=== PATIENT | female | born 1960 | race Hispanic/Latino ===

== ENCOUNTER → 2025-01-06 | Outpatient (CLI) | payer OTHER ==
--- NOTE | 2025-01-07 08:34 | HMCIMG ---
EXAM: CT Cardiac calcium scoring. CLINICAL HISTORY: Screening. TECHNIQUE: Thin collimated axial CT cardiac images were obtained. A CT scan is done according to ALARA (As Low As Reasonably Achievable). CONTRAST: None. COMPARISON: None provided. FINDINGS: Calcium Score: VESSEL Number of lesions Volume mm3 Equi. Mass/mg Calcium score LM 2 82.6 - 111.3 LAD 2 6.3 - 12.5 LCX 2 14.9 - 16.9 RCA 2 41.8 - 47.1 Total 8 145.6 - 187.9 IMPRESSION: The total calcium score is 187.9. This corresponds to the 94th percentile. /[place]
== END | disposition home or self-care (01) ==
LOC: RAH 08:23 → EDBD 03-12 14:30
PROVIDERS: ATTEND Internal Medicine Cardiovascular Disease
DX: Z13.6 Encounter for screening for cardiovascular disorders (principal)
CPT/HCPCS: 75571

== ENCOUNTER 2025-04-14 15:53 | Emergency (ER) | payer OTHER, MEDICARE ==
[~2025-04-14] VITALS: Ht 157.5 cm; Wt 72.2 kg
[2025-04-14 15:56] VITALS: TEMP 98.1
[2025-04-14 17:14] LABS: IMMATURE GRANULOCYTE ABSOLUTE 0.04 K/uL (0-1); NUCLEATED RED BLOOD CELLS 0.0 % (0.0-0.19); PLATELET COUNT (AUTO) 245 K/uL (130-400); RED BLOOD CELL COUNT(AUTO) 4.14 MIL/uL (4.00-5.50); RED CELL DISTRIBUTION WIDTH 13.0 % (11.0-15.5); WHITE BLOOD COUNT (AUTO) 9.1 K/uL (4.8-10.8)
--- NOTE | 2025-04-14 17:17 | EKG ---
[facility] Test Date: 2025-04-14 Test Time: 15:06:42 Pat Name: MELA MERCADO Department: ED Room: Gender: F Commercial Fisher: [id number] : 1960 Requested By: RAFAEL DELAROSA Order Number: [id number] Reading MD: Eric Wade Measurements Intervals [place] Rate: 63 P: 65 LA: 137 QRS: 63 QRSD: 91 T: 62 QT: 433 QTc: 440 Interpretive Statements Sinus rhythm Ventricular premature complex No previous ECG available for comparison Electronically Signed On 04-15-2025 16:10:30 CDT by Eric Wade Please click the below link to view image of tracing.
[2025-04-14 17:25] LABS: CREATININE 0.7 mg/dL (0.5-1.0); GLOMERULAR FILTR. RATE CALC 95.0 mL/min (>90); GLUCOSE,RANDOM 160.0 mg/dL (70-105); SODIUM SERUM 136.0 mmol/L (136-145); UREA NITROGEN, BLOOD 14.0 mg/dL (7-18)
--- NOTE | 2025-04-14 17:45 | HMCIMG ---
EXAM: CR Chest, 1 View. CLINICAL HISTORY: cp COMPARISON: None provided. FINDINGS: LUNGS: The lungs show no infiltrate or other acute finding. PLEURAL SPACES: No evidence of pleural effusion or pneumothorax. MEDIASTINUM: Cardiac size and mediastinal contours within normal limits. BONES: No acute osseous abnormality. IMPRESSION: No acute cardiopulmonary pathology is evident. /[place]
[2025-04-14] MEDS: DICYCLOMINE HCL 10 MG/5 ML ML PO ONE (18:19)
[2025-04-14] MEDS: LIDOCAINE HCL 2% VISCOUS 15 ML UDCUP PO ONE (18:19)
[2025-04-14] MEDS: MAG/ALUM/SIMETH 30 ML UDCUP PO ONE (18:19)
[2025-04-14 18:23] LABS: ASPARTATE AMINOTRANSFERASE 25.0 U/L (10-37); TOTAL PROTEIN, SERUM 8.6 g/dL (6.0-8.3)
--- NOTE | 2025-04-14 19:09 | ERN ---
ED Note History of Present Illness Stated Complaint: CHEST PAIN Chief Complaint: Chest Pain Time Seen by MD: 16:43 Time Seen by Midlevel: 16:48 Dictation: 65-year-old female coming in with complaints of an episode of chest pain about 13 30. Patient states she has a history of hypertension and cholesterol, patient was seen by PCP on Saturday and PCP added amlodipine to her hypertension regimen. Currently at this time patient is denying any chest pain, chest discomfort, shortness a breath, nausea and vomiting. Patient states she wanted to be evaluated because she is scared it was a heart attack. Allergies: Coded Allergies: No Known Drug Allergies (Unverified Allergy, Unknown, 04/14/25) Past Medical History Past Medical History: High Cholesterol, Hypertension Surgical History: Hysterectomy Surgical History Other: BREAST IMPLANT REMOVAL, PELVIC SX Review of System Dictation Constitutional: Negative for fever,chills, and weight loss Eyes: Negative for injury, pain,redness, and discharge ENT: Negative for injury,pain or swelling Cardiovascular: Positive for chest pain Respiratory: Negative for shortness of breath, cough, and wheezing, Abdomen/GI: Negative for abdominal pain, nausea, vomiting, diarrhea, and constipation Back: Negative for injury and pain : Negative for injury, bleeding and discharge MS/Extremity: Negative for injury and deformity Skin: Negative for rash, and discoloration Neuro: Negative for headache, weakness, numbness, tingling, and seizure Psych: Negative for suicide ideation, homicidal ideation, and hallucinations Review of Systems: was completed Initial Vital Sign VS Vital Signs Date Time Temp Pulse Resp B/P (MAP) Pulse Ox O2 Delivery O2 Flow Rate FiO2 04/14/25 15:56 98.1 62 15 180/73 100 Room Air 0 04/14/25 18:23 21 Physical Exam Dictation General: awake, alert, NAD Head/Face: Normocephalic, atraumatic Eyes: PERRL, EOMI, vision at baseline ENT: oral cavity clear, TMs clear, no signs of infection Neck: Trachea midline, supple, no nuchal rigidity Cardiovascular: RRR, normal S1/S2, No MRGs, no JVD Respiratory: CTAB, no respiratory distress, No rales or wheezes Abdomen: Soft, mild tenderness on palpation to the epigastric region, non- distended, normal bowel sounds, no guarding or rebound. Skin: Warm, dry, normal turgor, no rash MS/Extremity: Pulses equal, no cyanosis, neurovascular intact, FROM Neuro: COAx4, GCS 15, strength 5/5, CN 2-12 intact, normal cerebellar exam, normal gait, Psych: Normal behavior, mood, and affect normal Results (Laboratory/Radiology) Laboratory/Radiology Laboratory Tests Test 04/14/25 17:05 White Blood Count 9.1 K/uL (4.8-10.8) Red Blood Count 4.14 MIL/uL (4.00-5.50) Hemoglobin 13.2 g/dL (12.0-16.0) Hematocrit 39.9 % (36-48) Mean Corpuscular Volume 96.4 fL (79-99) Mean Corpuscular Hemoglobin 31.9 pg (27.0-33.0) Mean Corpuscular Hemoglobin Concent 33.1 g/dL (32.0-36.0) Red Cell Distribution Width 13.0 % (11.0-15.5) Platelet Count 245 K/uL (130-400) Mean Platelet Volume 10.8 fL (7.5-10.5) H Immature Granulocyte % (Auto) 0.4 % (0-1) Neutrophils (%) (Auto) 62.3 % (40.0-77.0) Lymphocytes (%) (Auto) 27.1 % (21.0-51.0) Monocytes (%) (Auto) 8.8 % (3.0-13.0) Eosinophils (%) (Auto) 0.8 % (0.0-8.0) Basophils (%) (Auto) 0.6 % (0.0-5.0) Neutrophils # (Auto) 5.7 K/uL (1.8-7.7) Lymphocytes # (Auto) 2.5 K/uL (1.0-4.8) Monocytes # (Auto) 0.8 K/uL (0.1-1.0) Eosinophils # (Auto) 0.07 K/uL (0.00-0.70) Basophils # (Auto) 0.05 K/uL (0.00-0.20) Absolute Immature Granulocyte (auto 0.04 K/uL (0-1) Nucleated Red Blood Cells 0.0 % (0.0-0.19) Sodium Level 136 mmol/L (136-145) Potassium Level 4.3 mmol/L (3.5-5.1) Chloride Level 99 mmol/L (101-111) L Carbon Dioxide Level 31 mmol/L (21-32) Blood Urea Nitrogen 14 mg/dL (7-18) Creatinine 0.7 mg/dL (0.5-1.0) Glomerular Filtration Rate Calc 95 mL/min (>90) Random Glucose 160 mg/dL (70-105) H Total Calcium 9.2 mg/dL (8.5-10.1) Total Bilirubin 0.6 mg/dL (0.2-1.0) Direct Bilirubin 0.2 mg/dL (0.0-0.3) Aspartate Amino Transf (AST/SGOT) 25 U/L (10-37) Alanine Aminotransferase (ALT/SGPT) 25 U/L (12-78) Alkaline Phosphatase 89 U/L (50-136) Troponin I High Sensitivity 5 ng/L (4-50) B-Type Natriuretic Peptide 49 pg/mL (0-100) Total Protein 8.6 g/dL (6.0-8.3) H Albumin 4.5 g/dL (3.5-5.0) Lipase 32 U/L (16-77) Labs Reviewed?: Yes EKG Comment: EKGs done at 3:06 p.m. sinus rhythm rate 63. Ventricular premature complex. No STEMI interpreted by ER MD ED Course ED Course Orders Procedure Category Date Status Time 12 Lead Ekg Tracing- EKG 04/14/25 Complete Technical 16:06 Cbc With Differential LAB 04/14/25 Complete 16:38 Basic Metabolic Panel LAB 04/14/25 Complete 16:38 Troponin I High LAB 04/14/25 Complete Sensitivity 16:38 Chest 1vw RAD 04/14/25 Resulted 16:38 B-Type Natriuretic LAB 04/14/25 Complete Peptide 16:38 Lipase LAB 04/14/25 Complete 18:00 Hepatic Function Panel LAB 04/14/25 Complete 18:00 Lidocaine Hcl 2% PHA 04/14/25 Complete Viscous (Lidocaine Hcl 18:00 Mag/Alum/Simeth 30ml PHA 04/14/25 Complete (Maalox Plus 30ml) 18:00 Dicyclomine Hcl PHA 04/14/25 Complete (Bentyl 10mg/5ml 18:00 Current Medications Medications (Trade) Dose Ordered Sig/Cecile Route PRN Reason Start Time Stop Time Status Last Admin Dose Admin Al Hydroxide/Mg Hydroxide (MAALox PLUS 30ML) 30 ml ONCE ONCE PO 04/14/25 18:00 04/14/25 18:04 DC 04/14/25 18:19 Dicyclomine HCl (Bentyl 10mg/5ml Syrup) 10 mg ONCE ONCE PO 04/14/25 18:00 04/14/25 18:04 DC 04/14/25 18:19 Lidocaine HCl (Lidocaine HCl 2% Viscous) 10 ml ONCE ONCE PO 04/14/25 18:00 04/14/25 18:04 DC 04/14/25 18:19 Vital Signs Date Time Temp Pulse Resp B/P (MAP) Pulse Ox O2 Delivery O2 Flow Rate FiO2 04/14/25 18:23 78 20 143/63 97 Room Air* 0 21 04/14/25 15:56 98.1 62 15 180/73 100 Room Air 0 HEART Score Response (Comments) Value History: Low suspicion (0) 0 EKG: Normal 0 Age: > 65yrs (+2) 2 Risk Factors: 1-2 risk factors (+1) 1 Initial Troponin: Normal limit (0) 0 Total 3 Medical Decision Making MDM MDM: 65-year-old female coming in with complaints of an episode of chest pain about . Patient states she has a history of hypertension and cholesterol, patient was seen by PCP on Saturday and PCP added amlodipine to her hypertension regimen. Currently at this time patient is denying any chest pain, chest d iscomfort, shortness a breath, nausea and vomiting. Patient states she wanted to be evaluated because she is scared it was a heart attack.CBC shows no leukocytosis, no anemia, no thrombocytopenia. Chemistry shows no electrolyte abnormality. Normal kidney function. No transaminitis. T bili within normal range. Normal lipase. Troponin is negative. EKGs shows no ST elevations or reciprocal changes. On reassessment patient states feels better, states she wants to go home. Discussed with the patient she needs to follow up with PCP and with a cardiology. Patient states she sees Dr. Kuo. Discussed on red flag symptoms of when to return back to the emergency room. Patient verbalized understanding, answered all questions. Differential diagnosis: ACS, anxiety, GERD, gastritis, pancreatitis Rationale: Tests considered and ordered secondary to shared decision making include: Previous outside records reviewed: Old ER visits. Risk of complication and/or morbidity or mortality of patient management: None Medications-Per medication reconciliation Need for hospitalization: Patient does not meet criteria for hospitalization. Need for emergency major/minor surgery: No There are no social concerns with this patient. Prescription drug management Prescriptions will include symptomatic care Patient's prior external medical records from other ER visits were reviewed by me as indicated. Prior testing and results from previous visits were reviewed. Prior tests were taken into account with medical decision making and resource utilization, independent historian/historians were used to obtain complete medical history. I independently interpreted the test that were performed, results were reviewed by me and considered findings on radiology if ordered. Medical management and examination interpretation discussions were had by me with other qualified healthcare professionals as indicated for the patient's care. DX & DISP Disposition: Discharge Departure Impression: Primary Impression: Chest pain, non-cardiac Additional Impression: Epigastric pain Condition: Stable Referrals: CHIARA MCGOWAN MD (PCP) Time of Disposition: 19:09 I have reviewed the case, and I agree with, Diagnosis and Plan MARTINE LOMELI [facility] [place] Apr 14, 2025 19:09
[2025-04-14 19:21] VITALS: BP 154/62; PULSE 70; RESP 20; O2SAT 97
== END 2025-04-14 19:23 | disposition home or self-care (01) ==
LOC: EDH 15:53
DX: R07.89 Other chest pain (principal); R10.13 Epigastric pain; E78.00 Pure hypercholesterolemia, unspecified; I10 Essential (primary) hypertension; Z90.710 Acquired absence of both cervix and uterus; Z98.82 Breast implant status
CPT/HCPCS: 36415; 71045; 80048; 80076; 83690; 83880; 84484; 85025; 93005; 99283